=== PATIENT | male | born 1970 | race African-American/Black ===

== ENCOUNTER → 2017-01-24 | Outpatient (CLI) | payer BC ==
[2017-01-24 13:40] LABS: PROLACTIN 2.5 NG/ML (2.1-17.7)
== END ==
LOC: M SMT 10:39
PROVIDERS: ATTEND Internal Medicine Endocrinology, Diabetes & Metabolism
DX: E29.1 Testicular hypofunction (principal); D49.7 Neoplasm of unspecified behavior of endocrine glands and other parts of nervous system

== ENCOUNTER → 2017-05-06 | Outpatient (CLI) | payer BC | LOC: M SMT 08:16 | PROVIDERS: ATTEND Physician Assistant | DX: Z11.3 Encounter for screening for infections with a predominantly sexual mode of transmission (principal) ==

== ENCOUNTER → 2017-05-06 | Outpatient (CLI) | payer BC ==
[2017-05-06 15:13] LABS: PROLACTIN 6.3 NG/ML (2.1-17.7)
== END ==
LOC: M SMT 08:20
PROVIDERS: ATTEND Internal Medicine Endocrinology, Diabetes & Metabolism
DX: D49.7 Neoplasm of unspecified behavior of endocrine glands and other parts of nervous system (principal)

== ENCOUNTER → 2017-11-24 | Outpatient (CLI) | payer BC ==
[2017-11-24 14:25] LABS: HEMATOCRIT 46.5 % (42.0-52.0); HEMOGLOBIN 15.5 g/dl (14.0-18.0); MEAN CORPUSCULAR HEMOGLOBIN 28.3 pg (27.0-33.0); MEAN CORPUSCULAR HGB CONC 33.3 g/dl (32.0-36.5); MEAN CORPUSCULAR VOLUME 84.9 fl (80.0-96.0); PLATELET COUNT, AUTOMATED 257 10^3/uL (150-450); RED BLOOD COUNT 5.48 10^6/uL (4.30-6.10); RED CELL DISTRIBUTION WIDTH 12.9 % (11.5-14.5); WHITE BLOOD COUNT 9.8 10^3/uL (4.0-10.0)
[2017-11-24 15:13] LABS: TESTOSTERONE 172 NG/DL (241-827)
[2017-11-24 15:14] LABS: PROLACTIN 4.7 NG/ML (2.1-17.7)
[2017-11-24 15:23] LABS: PSA SCREENING 0.87 NG/ML (< 4.0)
== END ==
LOC: M SMT 08:10
DX: D49.7 Neoplasm of unspecified behavior of endocrine glands and other parts of nervous system (principal); E29.1 Testicular hypofunction
CPT/HCPCS: 84146

== ENCOUNTER → 2018-02-24 | Outpatient (CLI) | payer BC ==
[2018-02-24 13:15] LABS: HEMATOCRIT 50.6 % (42.0-52.0); HEMOGLOBIN 16.3 g/dl (13.5-17.5); MEAN CORPUSCULAR HGB CONC 32.2 g/dl (32.0-36.5); MEAN CORPUSCULAR VOLUME 86.8 fl (80.0-96.0); PLATELET COUNT, AUTOMATED 228 10^3/uL (150-450); RED BLOOD COUNT 5.83 10^6/uL (4.30-6.10); RED CELL DISTRIBUTION WIDTH 13.1 % (11.5-14.5); WHITE BLOOD COUNT 4.5 10^3/uL (4.0-10.0)
[2018-02-24 13:38] LABS: PROLACTIN 26.4 NG/ML (2.1-17.7)
[2018-02-24 13:38] LABS: TESTOSTERONE 609 NG/DL (241-827)
== END ==
LOC: M SMT 08:02
DX: D49.7 Neoplasm of unspecified behavior of endocrine glands and other parts of nervous system (principal)
CPT/HCPCS: 84146

== ENCOUNTER → 2018-03-09 | Outpatient (REF) | payer BC ==
[2018-03-09 13:19] LABS: APPEARANCE, URINE CLEAR (CLEAR); BACTERIA, URINE AUTO NEGATIVE (NEGATIVE); BILIRUBIN, URINE AUTO NEGATIVE (NEGATIVE); BLOOD, URINE BLOOD NEGATIVE (NEGATIVE); COLOR, URINE YELLOW (YELLOW); GLUCOSE, URINE (UA) AUTO NEGATIVE (NEGATIVE); KETONE, URINE AUTO NEGATIVE (NEGATIVE); LEUKOCYTE ESTERASE, URINE AUTO NEGATIVE (NEGATIVE); NITRITE, URINE AUTO NEGATIVE (NEGATIVE); PROTEIN, URINE AUTO NEGATIVE (NEGATIVE); RBC, URINE AUTO 0 /HPF (0-3); SPECIFIC GRAVITY URINE AUTO 1.023 (1.002-1.035); SQUAMOUS EPITHELIAL CELL UR AU 0 /HPF (0-6); UROBILINOGEN, URINE AUTO 0.2 mg/dL (0.0-2.0); WBC, URINE AUTO 0 /HPF (0-3)
== END ==
LOC: M SMT 12:53
DX: R35.0 Frequency of micturition (principal)
CPT/HCPCS: 87086

== ENCOUNTER → 2018-03-09 | Outpatient (CLI) | payer BC ==
[2018-03-09 16:04] LABS: PSA SCREENING 0.81 NG/ML (< 4.0)
== END ==
LOC: M SMT 09:22
DX: Z12.5 Encounter for screening for malignant neoplasm of prostate (principal)
CPT/HCPCS: G0103

== ENCOUNTER → 2018-03-12 | Outpatient (CLI) | payer BC | LOC: M RAD 10:34 | DX: R35.0 Frequency of micturition (principal); R39.15 Urgency of urination; N20.0 Calculus of kidney | CPT/HCPCS: 76775 ==

== ENCOUNTER → 2018-04-15 | Outpatient (CLI) | payer BC ==
[2018-04-15 14:11] LABS: PROLACTIN 0.7 NG/ML (2.1-17.7)
== END ==
LOC: M SMT 08:20
DX: D49.7 Neoplasm of unspecified behavior of endocrine glands and other parts of nervous system (principal)
CPT/HCPCS: 84146

== ENCOUNTER → 2018-07-08 | Outpatient (CLI) | payer BC ==
[2018-07-08 14:04] LABS: PROLACTIN 1.8 NG/ML (2.1-17.7)
== END ==
LOC: M SMT 08:18
DX: D49.7 Neoplasm of unspecified behavior of endocrine glands and other parts of nervous system (principal)
CPT/HCPCS: 84146

== ENCOUNTER → 2018-09-11 | Outpatient (CLI) | payer BC ==
[2018-09-11 13:17] LABS: HEMATOCRIT 46.2 % (42.0-52.0); HEMOGLOBIN 15.9 g/dl (13.5-17.5)
[2018-09-11 13:50] LABS: PROLACTIN 2.5 NG/ML (2.1-17.7)
== END ==
LOC: M WUC 08:31
PROVIDERS: ATTEND Nurse Practitioner Family
DX: D49.7 Neoplasm of unspecified behavior of endocrine glands and other parts of nervous system (principal); E29.1 Testicular hypofunction

== ENCOUNTER → 2019-01-22 | Outpatient (CLI) | payer BC ==
[2019-01-22 13:39] LABS: HEMATOCRIT 46.2 % (42.0-52.0); HEMOGLOBIN 15.3 g/dl (13.5-17.5)
== END ==
LOC: M WUC 08:30
PROVIDERS: ATTEND Nurse Practitioner Family
DX: E29.1 Testicular hypofunction (principal)
CPT/HCPCS: 36415; 84403; 85014; 85018; G0103

== ENCOUNTER → 2019-01-22 | Outpatient (CLI) | payer BC ==
[2019-01-22 13:40] LABS: CHOLESTEROL RISK RATIO 3.258 (<5)
== END ==
LOC: M WUC 08:34
PROVIDERS: ATTEND Family Medicine
DX: Z13.220 Encounter for screening for lipoid disorders (principal)

== ENCOUNTER → 2019-07-21 | Outpatient (CLI) | payer BC ==
[2019-07-21 11:13] LABS: HEMATOCRIT 47.8 % (42.0-52.0)
== END ==
LOC: M WUC 08:09
PROVIDERS: ATTEND Nurse Practitioner Family
DX: E29.1 Testicular hypofunction (principal)

== ENCOUNTER → 2020-01-17 | Outpatient (CLI) | payer BC ==
[~2020-01-17] MED LIST: PROHANCE 279.3MG/ML 15ML VIAL As Ordered ONE
--- NOTE | 2020-01-17 12:14 | REP ---
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 Comparison MRI study dated January 29, 2016 was read as showing a 4 mm focus of decreased signal intensity in the left side of the pituitary gland consistent with a microadenoma. GADOLINIUM ENHANCEMENT DOSE: 8 mL of intravenous ProHance is administered. FINDINGS: No bony calvarial defect is seen. Craniocervical junction and upper cervical cord remain unremarkable. There is no MR evidence of significant paranasal sinus disease. No intraorbital abnormality is seen. There are two or three scattered foci of periventricular white matter hyperintensity, consistent with minimal small vessel changes. This is unchanged. Diffusion weighted scans show no evidence to suggest acute ischemia. There is no evidence of intracranial mass, infarct, or hemorrhage. Dynamically acquired post contrast images of the pituitary demonstrate a small 3.2 mm focus of decreased signal intensity in the left side of the pituitary gland, unchanged from the prior study and consistent with a small microadenoma. Pituitary stalk remains in midline. The pituitary gland is not enlarged, and its superior margin is concave downward. The cavernous sinus is unremarkable bilaterally. The suprasellar cistern is intact. Optic chiasm is unremarkable. IMPRESSION: Tiny focus of decreased signal intensity in the left side and pituitary gland on dynamic postcontrast images consistent with a small pituitary microadenoma. This is unchanged from the comparison study of January 29, 2016. No other significant abnormality. Electronically Signed by Brian Moseley MD 01/17/2020 01:37 P
== END ==
LOC: M RAD 09:16
PROVIDERS: ATTEND Internal Medicine Endocrinology, Diabetes & Metabolism
DX: D49.7 Neoplasm of unspecified behavior of endocrine glands and other parts of nervous system (principal)
CPT/HCPCS: 70553; A9576

== ENCOUNTER → 2020-02-03 | Outpatient (CLI) | payer BC ==
[2020-02-03 10:45] LABS: HEMATOCRIT 49.1 % (42.0-52.0); HEMOGLOBIN 16.5 g/dl (13.5-17.5)
[2020-02-03 13:13] LABS: PROLACTIN 8.9 NG/ML (2.1-17.7)
== END ==
LOC: M WUC 08:13
PROVIDERS: ATTEND Internal Medicine Endocrinology, Diabetes & Metabolism
DX: D49.7 Neoplasm of unspecified behavior of endocrine glands and other parts of nervous system (principal)

== ENCOUNTER → 2020-03-03 | Outpatient (REF) | payer BC ==
[2020-03-03 15:43] LABS: CRYSTALS, BODY FLUID NONE SEEN (NONE SEEN); SOURCE, BODY FLUID LFT ELBOW; SOURCE, BODY FLUID CRYSTALS LFT ELBOW; SYNOVIAL FLUID COLOR PINK (YELLOW)
[2020-03-03 15:50] LABS: SOURCE, BODY FLUID GLUCOSE LFT ELBOW
[2020-03-06 08:47] LABS: BODY FLUID RHEUMATOID SCREEN NEGATIVE (NEGATIVE)
[2020-03-06 08:50] LABS: MUCIN CLOT TEST 3+ (4+)
== END ==
LOC: M LAB REF 15:03
PROVIDERS: ATTEND Physician Assistant
DX: M70.31 Other bursitis of elbow, right elbow (principal)

== ENCOUNTER → 2020-08-09 | Outpatient (CLI) | payer BC ==
[2020-08-09 09:48] LABS: HEMATOCRIT 49.4 % (42.0-52.0); HEMOGLOBIN 16.6 g/dl (13.5-17.5)
[2020-08-09 10:28] LABS: PROLACTIN 10.6 NG/ML (2.1-17.7)
== END ==
LOC: M WUC 08:12
PROVIDERS: ATTEND Nurse Practitioner Family
DX: E29.1 Testicular hypofunction (principal); D49.7 Neoplasm of unspecified behavior of endocrine glands and other parts of nervous system
CPT/HCPCS: 36415; 84146; 84403; 85014; 85018; G0103

== ENCOUNTER → 2020-11-20 | Outpatient (REF) | payer BC | LOC: M LAB REF 14:03 | PROVIDERS: ATTEND Physician Assistant | DX: D18.00 Hemangioma unspecified site (principal) ==

== ENCOUNTER → 2021-02-16 | Outpatient (CLI) | payer BC ==
[2021-02-16 12:06] LABS: HEMATOCRIT 48.9 % (42.0-52.0); HEMOGLOBIN 16.1 g/dl (13.5-17.5)
== END ==
LOC: M WUC 09:44
PROVIDERS: ATTEND Nurse Practitioner Family
DX: E29.1 Testicular hypofunction (principal)

== ENCOUNTER → 2021-06-05 | Outpatient (CLI) | payer BC ==
--- NOTE | 2021-06-05 08:26 | REP ---
INDICATION: SOB COMPARISON: 12/29/2006 TECHNIQUE: PA and lateral. FINDINGS: The mediastinum and cardiac silhouette are normal. The lung chau are clear and without acute consolidation, effusion, or pneumothorax. The skeletal structures are intact and normal. IMPRESSION: No acute cardiopulmonary process. <Electronically signed by Rudy Castillo > 06/05/21 [id number]
== END ==
LOC: M WUC 08:08
PROVIDERS: ATTEND Family Medicine
DX: R06.02 Shortness of breath (principal)

== ENCOUNTER → 2021-08-30 | Outpatient (CLI) | payer BC ==
[2021-08-30 10:11] LABS: HEMATOCRIT 46.6 % (42.0-52.0)
[2021-08-30 11:12] LABS: PROLACTIN 5.2 NG/ML (2.1-17.7)
== END ==
LOC: M WUC 08:14
PROVIDERS: ATTEND Nurse Practitioner Family
DX: E29.1 Testicular hypofunction (principal); D49.7 Neoplasm of unspecified behavior of endocrine glands and other parts of nervous system
CPT/HCPCS: 36415; 84146; 84403; 85014; 85018; G0103

== ENCOUNTER 2021-10-08 06:40 | Day surgery (SDC) | payer BC ==
[~2021-10-08] VITALS: Ht 180.3 cm; Wt 83.9 kg
[~2021-10-08 06:40] MED LIST changes: +CABE0.5T PO; +NS 1,000 ML IV ONE; -PROHANCE 279.3MG/ML 15ML VIAL As Ordered ONE; +TEST5GEL TOP; +ZOLO100T PO
[2021-10-08] MEDS ORDERED: propofoL 200 MG/20 ML VIAL As Ordered ONE ×3 (07:05→07:45)
[2021-10-08] MEDS ORDERED: LIDOCAINE 2% 100MG/5ML SDV (FOR ANES.) As Ordered ONE (07:06)
[2021-10-08 08:32] VITALS: BP 132/75
== END 2021-10-08 08:35 | disposition home or self-care (01) ==
LOC: M OPP 06:40
PROVIDERS: ATTEND Internal Medicine Gastroenterology
DX: Z12.11 Encounter for screening for malignant neoplasm of colon (principal); Z80.0 Family history of malignant neoplasm of digestive organs; K63.5 Polyp of colon; K57.30 Diverticulosis of large intestine without perforation or abscess without bleeding; Z79.899 Other long term (current) drug therapy; Z91.030 Bee allergy status; Z87.891 Personal history of nicotine dependence

== ENCOUNTER → 2022-02-19 | Outpatient (CLI) | payer BC ==
[~2022-02-19] MED LIST changes: -NS 1,000 ML IV ONE
[2022-02-19 10:32] LABS: HEMATOCRIT 45.8 % (42.0-52.0); HEMOGLOBIN 15.3 g/dl (13.5-17.5)
== END ==
LOC: M PLALAB 07:34
PROVIDERS: ATTEND Nurse Practitioner Family
DX: E29.1 Testicular hypofunction (principal)

== ENCOUNTER → 2022-09-03 | Outpatient (CLI) | payer BC ==
[2022-09-03 11:28] LABS: HEMATOCRIT 48.1 % (42.0-52.0); HEMOGLOBIN 15.6 g/dl (13.5-17.5)
[2022-09-03 12:03] LABS: PROLACTIN 4.36 NG/ML (2.1-17.7)
== END ==
LOC: M WUC 08:09
PROVIDERS: ATTEND Nurse Practitioner Family
DX: E29.1 Testicular hypofunction (principal); D49.7 Neoplasm of unspecified behavior of endocrine glands and other parts of nervous system
CPT/HCPCS: 36415; 84146; 84403; 85014; 85018; G0103

== ENCOUNTER → 2022-09-05 | Outpatient (CLI) | payer BC ==
[2022-09-05 10:47] LABS: HEMATOCRIT 50.4 % (42.0-52.0); HEMOGLOBIN 16.6 g/dl (13.5-17.5)
[2022-09-05 11:13] LABS: PROLACTIN 4.03 NG/ML (2.1-17.7)
== END ==
LOC: M WUC 08:14
PROVIDERS: ATTEND Nurse Practitioner Family
DX: E29.1 Testicular hypofunction (principal)

== ENCOUNTER → 2023-02-24 | Outpatient (CLI) | payer BC | LOC: M WUC 08:04 | PROVIDERS: ATTEND Nurse Practitioner Family | DX: E29.1 Testicular hypofunction (principal) ==

== ENCOUNTER → 2023-02-24 | Outpatient (CLI) | payer BC ==
[2023-02-24 11:13] LABS: BASO % 0.4 % (0.0-1.0); EOS # 0.1 10^3/uL (0.0-0.5); EOS % 2.2 % (0.0-3.0); HEMATOCRIT 47.7 % (42.0-52.0); HEMOGLOBIN 15.5 g/dl (13.5-17.5); LYMPH # 1.2 10^3/uL (1.5-5.0); LYMPH % 23.6 % (24.0-44.0); MEAN CORPUSCULAR HEMOGLOBIN 27.7 pg (27.0-33.0); MEAN CORPUSCULAR HGB CONC 32.5 g/dl (32.0-36.5); MEAN CORPUSCULAR VOLUME 85.2 fl (80.0-96.0); MONO # 0.4 10^3/uL (0.0-0.8); MONO % 8.6 % (2.0-8.0); NEUTROPHILS # 3.2 10^3/uL (1.5-8.5); NEUTROPHILS % 64.8 % (36.0-66.0); PLATELET COUNT, AUTOMATED 241 10^3/uL (150-450)
[2023-02-24 11:41] LABS: ALBUMIN 3.8 G/DL (3.2-5.2); ALKALINE PHOSPHATASE 62 U/L (46-116); ALT/SGPT 42 U/L (7.0-40); AST/SGOT 30 U/L (<34); BILIRUBIN,TOTAL 0.8 MG/DL (0.3-1.2); BLOOD UREA NITROGEN 13 MG/DL (9-23); CALCIUM LEVEL 8.5 MG/DL (8.5-10.1); CARBON DIOXIDE LEVEL 32 MMOL/L (20-31); CHLORIDE LEVEL 103 MMOL/L (98-107); CHOLESTEROL LEVEL 202 MG/DL (<200); CHOLESTEROL RISK RATIO 3.75 (<5); CREATININE FOR GFR 0.92 MG/DL (0.70-1.30); GLOMERULAR FILTRATION RATE > 60.0 (>56); GLUCOSE, FASTING 87 MG/DL (60-100); HDL CHOLESTEROL 53.8 MG/DL (>40); LDL CHOLESTEROL 128.2 MG/DL (<100); NON-HDL-C 148.2 MG/DL; POTASSIUM SERUM 4.5 MMOL/L (3.5-5.1); SODIUM LEVEL 140 MMOL/L (136-145); TOTAL PROTEIN 6.4 G/DL (5.7-8.2); TRIGLYCERIDES LEVEL 100 MG/DL (<150)
== END ==
LOC: M WUC 08:08
PROVIDERS: ATTEND Family Medicine
DX: Z00.00 Encounter for general adult medical examination without abnormal findings (principal); Z79.899 Other long term (current) drug therapy

== ENCOUNTER → 2023-02-28 | Outpatient (CLI) | payer BC | LOC: M WUC 08:00 | PROVIDERS: ATTEND Nurse Practitioner Family | DX: E29.1 Testicular hypofunction (principal) ==

== ENCOUNTER → 2023-09-17 | Outpatient (CLI) | payer BC ==
[2023-09-17 12:05] LABS: HEMATOCRIT 47.1 % (42.0-52.0); HEMOGLOBIN 15.8 g/dl (13.5-17.5)
[2023-09-17 12:19] LABS: PROLACTIN 3.6 NG/ML (2.1-17.7)
== END ==
LOC: M WUC 08:06
PROVIDERS: ATTEND Nurse Practitioner Family
DX: E29.1 Testicular hypofunction (principal); D49.7 Neoplasm of unspecified behavior of endocrine glands and other parts of nervous system

== ENCOUNTER 2023-12-05 15:59 | Emergency (ER) | payer BC ==
[~2023-12-05] VITALS: Ht 180.3 cm; Wt 86.9 kg
[2023-12-05] MEDS ORDERED: TEST30SO3 (16:08)
[2023-12-05] MEDS ORDERED: TADA20TA (16:08)
[2023-12-05 17:04] LABS: BASO % 0.3 % (0.0-1.0); EOS # 0.1 10^3/uL (0.0-0.5); EOS % 2.1 % (0.0-3.0); LYMPH # 1.3 10^3/uL (1.5-5.0); MEAN CORPUSCULAR HEMOGLOBIN 28.5 pg (27.0-33.0); MEAN CORPUSCULAR VOLUME 83.8 fl (80.0-96.0); MONO # 0.5 10^3/uL (0.0-0.8); MONO % 8.1 % (2.0-8.0); NEUTROPHILS # 4.1 10^3/uL (1.5-8.5); NEUTROPHILS % 67.2 % (36.0-66.0); PLATELET COUNT, AUTOMATED 216 10^3/uL (150-450); RED BLOOD COUNT 5.61 10^6/uL (4.30-6.10); WHITE BLOOD COUNT 6.1 10^3/uL (4.0-10.0)
[2023-12-05 17:25] LABS: ALBUMIN 3.6 G/DL (3.2-5.2); ALKALINE PHOSPHATASE 65 U/L (46-116); ALT/SGPT 49 U/L (7.0-40); AST/SGOT 27 U/L (<34); BILIRUBIN,DIRECT 0.2 MG/DL (<0.4); BILIRUBIN,TOTAL 0.9 MG/DL (0.3-1.2); BLOOD UREA NITROGEN 22 MG/DL (9-23); CALCIUM LEVEL 8.6 MG/DL (8.5-10.1); CARBON DIOXIDE LEVEL 27 MMOL/L (20-31); CHLORIDE LEVEL 107 MMOL/L (98-107); CK-MB VALUE MASS 2.9 NG/ML (<3.6); CPK CREATINE PHOSPHOKINASE 347 U/L (46-171); GLOMERULAR FILTRATION RATE > 60.0 (>56); GLUCOSE, FASTING 134 MG/DL (60-100); MB/CK RELATIVE INDEX 0.83 (< OR =4); POTASSIUM SERUM 4.1 MMOL/L (3.5-5.1); SODIUM LEVEL 139 MMOL/L (136-145); TOTAL PROTEIN 6.1 G/DL (5.7-8.2)
[2023-12-05 17:29] LABS: THYROXINE (T4) 6.1 UG/DL (4.5-10.9)
[2023-12-05 17:30] LABS: THYROID STIMULATING HORMONE 0.439 uIU/ML (0.55-4.78)
[2023-12-05] MEDS: NS 1,000 ML IV ONE (18:41)
[2023-12-05 19:44] VITALS: BP 131/79; TEMP 98.2; O2SAT 98
== END 2023-12-05 19:51 | disposition home or self-care (01) ==
LOC: M ED 15:59
DX: R07.9 Chest pain, unspecified (principal); R00.1 Bradycardia, unspecified; I45.10 Unspecified right bundle-branch block; F10.10 Alcohol abuse, uncomplicated; Z91.030 Bee allergy status; Z79.83 Long term (current) use of bisphosphonates; Z79.899 Other long term (current) drug therapy

== ENCOUNTER → 2023-12-31 | Outpatient (REF) | payer BC ==
[~2023-12-31] MED LIST changes: +TADA20TA; +TEST30SO3
[2023-12-31 11:59] LABS: FREE T4 1.26 NG/DL (0.89-1.76); THYROID STIMULATING HORMONE 1.02 uIU/ML (0.55-4.78)
== END ==
LOC: M LABWUC 10:15
PROVIDERS: ATTEND Family Medicine
DX: E07.9 Disorder of thyroid, unspecified (principal)

== ENCOUNTER → 2024-04-01 | Outpatient (CLI) | payer BC ==
[2024-04-01 11:19] LABS: HEMOGLOBIN 15.9 g/dl (13.5-17.5)
[2024-04-01 11:49] LABS: PSA SCREENING 0.54 NG/ML (< 4.00)
== END ==
LOC: M WUC 08:02
PROVIDERS: ATTEND Nurse Practitioner Family
DX: E29.1 Testicular hypofunction (principal)
CPT/HCPCS: 36415; 84403; 85014; 85018; G0103

== ENCOUNTER → 2024-09-29 | Outpatient (CLI) | payer BC ==
[2024-09-29 10:08] LABS: HEMATOCRIT 47.3 % (42.0-52.0); HEMOGLOBIN 16.1 g/dl (13.5-17.5)
[2024-09-29 10:36] LABS: PROLACTIN 3.8 NG/ML (2.1-17.7)
== END ==
LOC: M WUC 08:02
PROVIDERS: ATTEND Nurse Practitioner Family
DX: D49.7 Neoplasm of unspecified behavior of endocrine glands and other parts of nervous system (principal); E29.1 Testicular hypofunction

== ENCOUNTER → 2025-02-07 | Outpatient (CLI) | payer BC | LOC: M WUC 08:07 | PROVIDERS: ATTEND Family Medicine | DX: M50.10 Cervical disc disorder with radiculopathy, unspecified cervical region (principal) ==

== ENCOUNTER → 2025-04-27 | Outpatient (CLI) | payer BC ==
[~2025-04-27] MED LIST changes: +GABA-1172 PO; +MELO15TA28; +PERC5TAB12 PO; +PRED10TA2 PO
[2025-04-27 12:49] LABS: PSA SCREENING 0.75 NG/ML (< 4.00)
[2025-04-27 12:54] LABS: TESTOSTERONE 481.0 NG/DL (241-827)
== END ==
LOC: M WUC 09:59
PROVIDERS: ATTEND Nurse Practitioner Family
DX: E29.1 Testicular hypofunction (principal)
CPT/HCPCS: 36415; 84403; 85014; 85018; G0103

== ENCOUNTER → 2025-06-16 | Outpatient (CLI) | payer BC ==
[~2025-06-16] MED LIST changes: +PROHANCE 279.3MG/ML 15ML VIAL As Ordered ONE
== END ==
LOC: M RAD 07:03
PROVIDERS: ATTEND Nurse Practitioner Family
DX: D49.7 Neoplasm of unspecified behavior of endocrine glands and other parts of nervous system (principal)